=== PATIENT | male | born 1990 | race African-American/Black ===

== ENCOUNTER 2021-10-13 23:20 | Emergency (ER) | payer SELFPAY ==
[2021-10-14] MEDS ORDERED: Dexamethasone 10 MG/ML VIAL ONE (00:29)
[2021-10-14] MEDS ORDERED: Ketorolac Tromethamine 30 MG/ML VIAL ONE (00:29)
[2021-10-14] MEDS ORDERED: cefTRIAXone\\ROCEPHIN 1 GM VIAL ONE (00:29)
== END 2021-10-14 01:43 | disposition home or self-care (01) ==
LOC: CSHERS 23:20
DX: J36 Peritonsillar abscess (principal); F17.210 Nicotine dependence, cigarettes, uncomplicated
CPT/HCPCS: 87081; 87430; 96374; 96375; J0696; J1100; J1885

== ENCOUNTER 2022-09-04 17:24 | Emergency (ER) | payer SELFPAY ==
[2022-09-04] MEDS ORDERED: Dexamethasone 10 MG/ML VIAL ONE (17:55)
== END 2022-09-04 19:25 | disposition home or self-care (01) ==
LOC: CSHERS 17:24
DX: T78.40XA Allergy, unspecified, initial encounter (principal); F17.210 Nicotine dependence, cigarettes, uncomplicated
CPT/HCPCS: 96374; J1100

== ENCOUNTER 2024-04-09 14:24 | Emergency (ER) | payer SELFPAY ==
[2024-04-09] MEDS ORDERED: Famotidine 20 MG TAB ONE (14:59)
[2024-04-09] MEDS ORDERED: Dexamethasone 10 MG/ML VIAL ONE (15:00)
[2024-04-09] MEDS ORDERED: Ondansetron ODT 4 MG TAB ONE (15:00)
[2024-04-09] MEDS ORDERED: diphenhydrAMINE 25 MG CAP ONE (15:00)
== END 2024-04-09 16:23 | disposition home or self-care (01) ==
LOC: CSHERS 14:24
DX: L50.0 Allergic urticaria (principal); F17.210 Nicotine dependence, cigarettes, uncomplicated
CPT/HCPCS: 96372; 99282; J1100; Q0162